=== PATIENT | female | born 1995 | race Two or more races ===

== ENCOUNTER 2018-06-12 03:36 | Emergency (ER) | payer OTHER, BC ==
[2018-06-12] MEDS: SOD CHLORIDE 0.9% 1,000 ML IV (04:57)
[2018-06-12] MEDS: DIPHENHYDRAMINE 50 MG INJ IV (04:59)
[2018-06-12] MEDS: METOCLOPRAMIDE 10 MG INJ IV (04:59)
[2018-06-12 05:29] LABS: ADD UMIC YES; UR ASCORBIC ACID NEGATIVE (NEGATIVE); UR BILIRUBIN (Dip) NEGATIVE (NEGATIVE); UR BLOOD (Dip) 1+ mg/dL (NEGATIVE); UR CLARITY CLEAR (CLEAR); UR COLOR COLORLESS (YELLOW); UR GLUCOSE (Dip) NEGATIVE (NEGATIVE); UR KETONES (Dip) NEGATIVE (NEGATIVE); UR LEUKOCYTE ESTERASE (Dip) NEGATIVE Leu/ul (NEGATIVE); UR NITRITE (Dip) NEGATIVE (NEGATIVE); UR RBC 0 /HPF (0-5); UR SPECIFIC GRAVITY (Dip) 1.004 (1.003-1.030); UR TOTAL PROTEIN (Dip) NEGATIVE (NEGATIVE); UR UROBILINOGEN (Dip) NEGATIVE (NEGATIVE); UR WBC 0 /HPF (0-5)
== END 2018-06-12 06:42 | disposition home or self-care (01) ==
LOC: FTE 03:36
DX: G43.909 Migraine, unspecified, not intractable, without status migrainosus (principal); J32.9 Chronic sinusitis, unspecified
CPT/HCPCS: 81001; 81025; 96361; 96374; 96375; 99284-25

== ENCOUNTER 2018-12-23 04:12 | Emergency (ER) | payer OTHER ==
[2018-12-23] MEDS: ACETAMINOPHEN 325 MG TAB PO (04:58)
== END 2018-12-23 06:36 | disposition home or self-care (01) ==
LOC: E/R 04:12
DX: M79.652 Pain in left thigh (principal)
CPT/HCPCS: 93971; 99284-25

== ENCOUNTER 2019-04-03 16:45 | Inpatient (IN) | payer OTHER ==
[2019-04-03] MEDS ORDERED: METHYLERGONOVINE 0.2 MG INJ IM ×3 (17:30→22:00)
[2019-04-03] MEDS ORDERED: MISOPROSTOL 200 MCG TAB PR ×3 (17:30→22:00)
[2019-04-03] MEDS ORDERED: CARBOPROST 250 MCG INJ IM ×3 (17:30→22:00)
[2019-04-03] MEDS ORDERED: OXYTOCIN 30 UNITS/LR 500 ML IV ×4 (17:30→22:00)
[2019-04-03] MEDS ORDERED: CEFAZOLIN 2 GM/50 ML (PMX) 50 ML IVPB (17:30)
[2019-04-03 17:44] LABS: ADD MAN DIFF? NO
[2019-04-03 17:47] LABS: WHITE BLOOD COUNT 12.1 10^3/ul (4.8-10.8)
[2019-04-03 17:47] LABS: BASOPHILS % 0.3 % (0.0-2.0); EOSINOPHILS # 0.2 10^3/ul (0.0-0.5); EOSINOPHILS % 1.5 % (0.0-7.0); HEMATOCRIT 33.7 % (37.0-47.0); HEMOGLOBIN 10.9 g/dl (12.0-16.0); LYMPHOCYTES # 2.2 10^3/ul (0.8-2.9); LYMPHOCYTES % 18.1 % (15.0-51.0); MEAN CORPUSCULAR HEMOGLOBIN 27.3 pg (29.0-33.0); MEAN CORPUSCULAR HGB CONC 32.3 g/dl (32.0-37.0); MEAN CORPUSCULAR VOLUME 84.5 fl (82.0-101.0); MEAN PLATELET VOLUME 10.7 fl (7.4-10.4); MONOCYTE # 0.8 10^3/ul (0.3-0.9); MONOCYTES % 6.4 % (0.0-11.0); NEUTROPHIL # 8.8 10^3/ul (1.6-7.5); NEUTROPHILS % 73.1 % (39.0-77.0); PLATELET COUNT 350 10^3/UL (140-415); RED BLOOD COUNT 3.99 10^6/ul (4.20-5.40); RED CELL DISTRIBUTION WIDTH 13.5 % (11.5-14.5)
[2019-04-03 18:07] LABS: INR 0.86; PROTIME 11.8 Sec (11.9-14.9); PT RATIO 0.9
[2019-04-03 18:08] LABS: PARTIAL THROMBOPLASTIN TIME 27.5 Sec (23.0-35.0)
[2019-04-03 18:39] LABS: HEPATITIS B SURFACE ANTIGEN NEGATIVE (NEGATIVE)
[2019-04-03] MEDS: LACTATED RINGER'S 1,000 ML IV ×2 (18:43→21:48)
[2019-04-03] MEDS ORDERED: TERBUTALINE 1 ML (18:48)
[2019-04-03] MEDS: TERBUTALINE 1 MG/ML INJ SC (18:52)
[2019-04-03] MEDS ORDERED: OXYTOCIN 30 UNITS/LR 500 ML BAG IV (20:00)
[2019-04-03] MEDS ORDERED: OXYTOCIN 10 UNIT INJ (20:01)
[2019-04-03] MEDS ORDERED: morphine SULFATE/PF (10 MG/10 ML) INJ (20:01)
[2019-04-03] MEDS ORDERED: ONDANSETRON 4 MG INJ (20:01)
[2019-04-03] MEDS ORDERED: PHENYLephrine 10 MG INJ ×2 (20:14→21:00)
[2019-04-03] MEDS ORDERED: FENTAnyl 50 MCG/ML VIAL (20:56)
[2019-04-03] MEDS ORDERED: NALOXONE (0.4 MG/ML) INJ IV (22:00)
[2019-04-03] MEDS ORDERED: ZOLPIDEM 5 MG TAB PO (22:00)
[2019-04-03] MEDS ORDERED: OXYCODONE/ACETAMINOPHEN (5/325) TAB PO ×2 (22:00)
[2019-04-03] MEDS ORDERED: ONDANSETRON 4 MG INJ IV (22:00)
[2019-04-03] MEDS ORDERED: LANOLIN HPA 1 PKT TOP (22:00)
[2019-04-03] MEDS ORDERED: morphine 2 MG INJ IV (22:00)
[2019-04-03] MEDS ORDERED: DIPHENHYDRAMINE 50 MG INJ IV ×2 (22:00)
[2019-04-03] MEDS: OXYTOCIN 30 UNITS/LR 500 ML IV (22:02)
[2019-04-03] MEDS: CEFAZOLIN 2 GM/50 ML (PMX) 50 ML IVPB (23:41)
[2019-04-04] MEDS ORDERED: LACTATED RINGER'S 1,000 ML IV (00:40)
[2019-04-04] MEDS: OXYTOCIN 30 UNITS/LR 500 ML IV (00:55)
[2019-04-04] MEDS ORDERED: MISOPROSTOL 200 MCG TAB PR ×2 (01:00)
[2019-04-04] MEDS ORDERED: CARBOPROST 250 MCG INJ IM ×2 (01:00)
[2019-04-04] MEDS ORDERED: OXYTOCIN 30 UNITS/LR 500 ML IV ×2 (01:00)
[2019-04-04] MEDS ORDERED: ZOLPIDEM 5 MG TAB PO ×2 (01:00)
[2019-04-04] MEDS ORDERED: DIPHENHYDRAMINE 50 MG INJ IV ×2 (01:00)
[2019-04-04] MEDS ORDERED: LANOLIN HPA 1 PKT TOP ×2 (01:00)
[2019-04-04] MEDS ORDERED: OXYCODONE/ACETAMINOPHEN (5/325) TAB PO ×3 (01:00)
[2019-04-04] MEDS ORDERED: ONDANSETRON 4 MG INJ IV ×2 (01:00)
[2019-04-04] MEDS ORDERED: METHYLERGONOVINE 0.2 MG INJ IM ×2 (01:00)
[2019-04-04] MEDS: LACTATED RINGER'S 1,000 ML IV ×2 (05:20→12:39)
[2019-04-04 08:12] LABS: ADD MAN DIFF? NO
[2019-04-04 08:19] LABS: WHITE BLOOD COUNT 15.1 10^3/ul (4.8-10.8)
[2019-04-04 08:19] LABS: BASOPHILS % 0.3 % (0.0-2.0); EOSINOPHILS % 0.2 % (0.0-7.0); HEMATOCRIT 30.8 % (37.0-47.0); HEMOGLOBIN 9.7 g/dl (12.0-16.0); LYMPHOCYTES # 1.3 10^3/ul (0.8-2.9); LYMPHOCYTES % 8.6 % (15.0-51.0); MEAN CORPUSCULAR HEMOGLOBIN 26.5 pg (29.0-33.0); MEAN CORPUSCULAR HGB CONC 31.5 g/dl (32.0-37.0); MEAN CORPUSCULAR VOLUME 84.2 fl (82.0-101.0); MEAN PLATELET VOLUME 10.5 fl (7.4-10.4); MONOCYTES % 6.4 % (0.0-11.0); NEUTROPHIL # 12.7 10^3/ul (1.6-7.5); PLATELET COUNT 289 10^3/UL (140-415); RED BLOOD COUNT 3.66 10^6/ul (4.20-5.40); RED CELL DISTRIBUTION WIDTH 13.5 % (11.5-14.5)
[2019-04-04] MEDS: SENNA/DOCUSATE NA (8.6MG/50MG) TAB PO ×2 (08:21→20:14)
[2019-04-04] MEDS ORDERED: SENNA/DOCUSATE NA (8.6MG/50MG) TAB PO ×2 (09:00)
[2019-04-04 19:22] LABS: RAPID PLASMA REAGIN NONREACTIVE (NR)
[2019-04-04] MEDS: OXYCODONE/ACETAMINOPHEN (5/325) TAB PO (20:14)
[2019-04-05] MEDS: OXYCODONE/ACETAMINOPHEN (5/325) TAB PO (05:30)
[2019-04-05] MEDS: SENNA/DOCUSATE NA (8.6MG/50MG) TAB PO (09:00)
[2019-04-05] MEDS: ACETAMINOPHEN 325 MG TAB PO (18:19)
[2019-04-06] MEDS: ACETAMINOPHEN 325 MG TAB PO ×2 (02:26→19:35)
[2019-04-06] MEDS: DIPHTH/TET/ACEL PERTUSS (ADULT) 0.5 ML VIAL IM* (14:23)
[2019-04-06] MEDS ORDERED: SENNA TAB (23:23)
[2019-04-07] MEDS: SENNA TAB PO ×2 (00:30→09:33)
[2019-04-07] MEDS: NA PHOSPHATE/BIPHOS 133 ML ENEMA PR (01:30)
[2019-04-07] MEDS: ACETAMINOPHEN 325 MG TAB PO ×4 (01:55→15:56)
== END 2019-04-07 20:40 | disposition home or self-care (01) | DRG 788 ==
LOC: OBT 16:45 → PP1 04-04 00:26 → L-D 16:47 → OBT 17:24 → L-D 17:24
PROVIDERS: Obstetrics & Gynecology
PROC: 10D00Z1 Extraction of Products of Conception, Low, Open Approach (ICD-10-PCS; principal; 2019-04-04)
PROC: 3E033VJ Introduction of Other Hormone into Peripheral Vein, Percutaneous Approach (ICD-10-PCS; 2019-04-04)
DX: O65.5 Obstructed labor due to abnormality of maternal pelvic organs (principal); O34.211 Maternal care for low transverse scar from previous cesarean delivery; O99.214 Obesity complicating childbirth; Z3A.38 38 weeks gestation of pregnancy; Z37.0 Single live birth
CPT/HCPCS: 85025; 85610; 85730; 86592; 86850; 86900; 86901; 87340; 88304; 90715; 99464